=== PATIENT | male | born 1970 | race Two or more races ===

== ENCOUNTER 2023-03-05 06:17 | Day surgery (SDC) | payer OTHER ==
[~2023-03-05 06:17] MED LIST: ENALAPRIL MALEA10 MG PO
== END 2023-03-05 14:55 | disposition home or self-care (01) ==
LOC: CIR.AMB 06:17
PROVIDERS: ATTEND Surgery Surgery of the Hand
DX: M72.0 Palmar fascial fibromatosis [Dupuytren] (principal); Z20.822 Contact with and (suspected) exposure to COVID-19; I10 Essential (primary) hypertension